=== PATIENT | female | born 1995 | race African-American/Black ===

== ENCOUNTER 2017-04-11 12:04 | Emergency (ER) | payer SELFPAY ==
[~2017-04-11] VITALS: Ht 167.6 cm; Wt 62.1 kg
[~2017-04-11 12:04] MED LIST: DICL50TA4 PO
--- OUTSIDE RECORDS SUMMARY | 2017-04-11 12:10 | XMS REPORT | Continuity of Care Document ---
Author Author [facility] Organization [facility] Address Unknown Phone Unavailable Allergies Active Description Code Type Severity Reaction Onset Reported/Identified Relationship to Patient Clinical Status Yes No Known Drug Allergies [id number] Drug Allergy Unknown N/A 12/04/2014 Medications There is no data. Problems Date Dx Coded Attending Type Code Diagnosis Diagnosed By 12/04/2014 BELÉN DAVIDSON DO Ot R07.89 12/05/2014 RYAN DICKSON MD Ot J06.9 12/05/2014 RYAN DICKSON MD Ot R06.00 04/09/2015 GWENDOLYN BESS MD Ot F12.10 CANNABIS ABUSE, UNCOMPLICATED 04/09/2015 GWENDOLYN EBSS MD Ot F32.9 MAJOR DEPRESSIVE DISORDER, SINGLE EPISOD 04/09/2015 GWENDOLYN BESS MD Ot G40.409 OTH GENERALIZED EPILEPSY, NOT INTRACTABL 04/09/2015 GWENDOLYN BESS MD Ot J45.909 UNSPECIFIED ASTHMA, UNCOMPLICATED 04/09/2015 GWENDOLYN BESS MD Ot M54.9 DORSALGIA, UNSPECIFIED 04/09/2015 GWENDOLYN BESS MD Ot R07.89 OTHER CHEST PAIN 04/09/2015 GWENDOLYN BESS MD Ot R45.851 SUICIDAL IDEATIONS Procedures There is no data. Results There is no data. Encounters ACCT No. Visit Date/Time Discharge Status Pt. Type Provider Facility Loc./Unit Complaint [id number] 04/08/2015 19:28:00 04/09/2015 14:20:00 DIS Inpatient GWENDOLYN BESS MD [facility] ICU NEW ONSET SEIZURE; SUICIDAL IDEATION, ATYPICAL C/P [id number] 12/05/2014 02:47:00 12/05/2014 03:53:00 DIS Emergency RYAN DICKSON MD [facility] ER [id number] 12/04/2014 03:52:00 12/04/2014 06:04:00 DIS Emergency BELÉN DAVIDSON DO [facility] ER [id number] 04/11/2017 12:06:00 ACT Emergency MASON VILLAFUERTE, KIRSTIN Andrade [facility] ER BACK PAIN,NOSE DRAINAGE
--- NOTE | 2017-04-11 12:36 | ED Back Pain ---
General Chief Complaint: Back Problems Stated Complaint: BACK PAIN,NOSE DRAINAGE Nursing Triage Note: AMB TO ROOM REPORTS THAT SHE WAS BENDING OVER LAST NIGHT TO TIE SHOE WHEN ONSET OF LOW BACK PAIN. HAS NOT TAKEN ANY TYLENOL OF IBUPROFEN BECAUSE IT DOES NOT HELP. ALSO C/O NASAL CONGESTION. Nursing Sepsis Screen: No Definite Risk Source of Information: Patient History of Present Illness Date Seen by Provider: Apr 11, 2017 Time Seen by Provider: 12:30 Initial Comments This 22-year-old female presents with acute low back pain after she bent over last night and her shoe. She complained of pain over the lumbar region. Patient's pain is sharp in nature and is moderately severe in quality. It radiates into her hip.. She has no associated weakness or paresthesias to lower extremities. Patient has had intermittent similar episodes for years. Patient has no dysuria, frequency, fever, chills, abdominal discomfort, nausea or vomiting. Allergies and Home Medications Allergies Coded Allergies: No Known Drug Allergies (Unverified , 12/04/14) Home Medications No Active Prescriptions or Reported Meds Patient Home Medication List Home Medication List Reviewed: Yes Constitutional: No see HPI EENTM: no symptoms reported Respiratory: No cough Cardiovascular: No chest pain Gastrointestinal: No nausea, No vomiting Genitourinary: No dysuria, No frequency Musculoskeletal: back pain Skin: No rash Psychiatric/Neurological: No Symptoms Reported Past Xtajizv-Xzycrt-Jckyfn Hx Patient Social History Alcohol Use: Denies Use Recreational Drug Use: Yes Recent Foreign Travel: No Contact w/Someone Who Travel: No Recent Infectious Disease Expo: No Immunizations Up To Date Tetanus Booster (TDap): Less than 5yrs Seasonal Allergies Seasonal Allergies: No Surgeries History of Surgeries: No Respiratory History of Respiratory Disorde: Yes Respiratory Disorders: Asthma, Pneumonia Cardiovascular History of Cardiac Disorders: Yes (cp) Neurological History of Neurological Disord: No Reproductive System Hx Reproductive Disorders: No Sexually Transmitted Disease: No Gastrointestinal History of Gastrointestinal Di: No Musculoskeletal History of Musculoskeletal Dis: Yes Musculoskeletal Disorders: Chronic Back Pain Endocrine History of Endocrine Disorders: No Cancer History of Cancer: No Psychosocial History of Psychiatric Problem: No Integumentary History of Skin or Integumenta: Yes Skin/Integumentary Disorders: Eczema Blood Transfusions History of Blood Disorders: No Reviewed Nursing Assessment Reviewed/Agree w Nursing PMH: Yes Family Medical History Significant Family History: No Pertinent Family Hx Family Medial History: Congenital disease 19 FATHER (sickle cell trait) Dementia G8 BROTHER (adhd) Physical Exam Vital Signs Vital Signs - First Documented 04/11/17 12:10 Temp 97.6 Pulse 66 Resp 18 B/P (MAP) 123/73 (90) Capillary Refill : Less Than 3 Seconds General Appearance: No Apparent Distress, WD/WN HEENT: Normal ENT Inspection Neck: Normal Inspection Cardiovascular: Regular Rate, Rhythm Respiratory: Chest Non Tender, Lungs Clear Gastrointestinal: Normal Bowel Sounds, Non Tender, Soft Back: Normal Inspection, No CVA Tenderness, Other (the area of the patient's pain is located over the lumbar region) Extremity: Normal Capillary Refill, Normal Range of Motion Neurologic/Psychiatric: Alert, Oriented x3, No Motor/Sensory Deficits, Normal Mood/Affect Skin: Normal Color, Warm/Dry Progress/Results/Core Measures Results/Orders Vital Signs/I&O Vital Sign - Last 12Hours 04/11/17 12:10 Temp 97.6 Pulse 66 Resp 18 B/P (MAP) 123/73 (90) Blood Pressure Mean: 90 Progress Note : Time: 12:32 Progress Note Patient has had similar problems with her back for years and has had a complete CAT scan of her back which demonstrated no acute pathology 4 years ago. I discussed treatment options with the patient to which she agrees. ECG Initial ECG Impression Date: Apr 11, 2017 Departure Impression Impression: Primary Impression: Low back pain Qualified Codes: M54.5 - Low back pain; G89.29 - Other chronic pain Disposition: 01 HOME, SELF-CARE Condition: Unchanged Departure-Patient Inst. Decision time for Depature: 12:33 Referrals: [facility] (PCP) Primary Care Physician Patient Instructions: Low Back Pain (DC) Add. Discharge Instructions: Vicodin and Norflex as prescribed. Close follow-up with your skin health doctor on Thursday. Ice and/or heat to the low back with rest in the interim. Return if any problems or questions. All discharge instructions reviewed with patient and/or family. Voiced understanding. Scripts No Active Prescriptions or Reported Meds KIRSTIN CUEVAS MD Apr 11, 2017 12:36
[2017-04-11 12:40] VITALS: BP 123/73
== END 2017-04-11 12:40 | disposition home or self-care (01) ==
LOC: EDUNIT# 12:04 → ER 12:06
DX: M54.5 Low back pain (principal); J45.909 Unspecified asthma, uncomplicated
CPT/HCPCS: 99281